=== PATIENT | male | born 1965 | race African-American/Black ===

== ENCOUNTER 2022-09-30 14:10 | Emergency (ER) | payer OTHER ==
[2022-09-30] MEDS ORDERED: Furosemide 40 MG/4 ML VIAL ONE (15:03)
[2022-09-30 15:07] LABS: Hemoglobin 11.8 g/dL (13.5-17.5); Mean Corpuscular HGB CONC 32.6 g/dL (32.0-36.0); Mean Corpuscular Hemoglobin 29.4 pg (27.0-33.0); Mean Corpuscular Volume 90.3 fl (81.2-95.1); Mean Platelet Volume 9.4 fl (7.4-10.4); Platelet Count 160 10x3/uL (150-450); RBC Distribution Width 14.4 % (11.5-14.5); Red Blood Cell (RBC) Count 4.01 10x6/uL (4.32-5.72); White Blood Cell (WBC) Count 12.3 10x3/uL (3.5-10.5)
[2022-09-30 15:22] LABS: SARS-CoV-2 NAA Rapid Test Not Detected (NotDetected)
[2022-09-30 15:33] LABS: CKMB 1.9 ng/mL (0-6.6)
[2022-09-30 15:51] LABS: ALT (SGPT) 12 U/L (8-55); AST (SGOT) 20 U/L (5-34); Albumin 3.1 g/dL (3.5-5.0); Alkaline Phosphatase 102 U/L (40-110); Anion Gap 16 mmol/L (10-20); BUN (Urea Nitrogen) 24 mg/dL (8.4-25.7); Bilirubin, Total 0.9 mg/dL (0.2-1.2); Calc. Creatinine Clearance 0 mL/min (70-130); Calcium 8.6 mg/dL (7.8-10.44); Carbon Dioxide 22 mmol/L (22-29); Chloride 98 mmol/L (98-107); Estimated GFR 75; Globulin 4.8 g/dL (2.4-3.5); Glucose 320 mg/dL (70-105); Lipase 4 U/L (8-78); Potassium 4.1 mmol/L (3.5-5.1); Protein, Total 7.9 g/dL (6.0-8.3); Sodium 132 mmol/L (136-145)
[2022-09-30 16:16] LABS: Band 5 % (5-11); Lymphocytes 7 % (21-51); Monocytes 11 % (0-10)
[2022-09-30] MEDS ORDERED: cefTRIAXone\\ROCEPHIN 1 GM VIAL ONE (16:20)
[2022-09-30] MEDS ORDERED: Metoprolol Tartrate 5 MG/5 ML VIAL ONE (16:20)
[2022-09-30 16:21] LABS: Neutrophil 77 % (42-75); Platelet Morphology Comment Appears Adequate
[2022-09-30 16:22] LABS: MDiff Complete? YES; RBC Morphology Normal
[2022-09-30] MEDS ORDERED: Aspirin Chewable 81 MG TAB ONE (16:39)
[2022-09-30] MEDS ORDERED: hydrALAZINE 20 MG/ML VIAL ONE (17:40)
== END 2022-09-30 22:53 | disposition short-term general hospital (02) ==
LOC: CSHERS 14:10
DX: S81.802A Unspecified open wound, left lower leg, initial encounter (principal); I11.0 Hypertensive heart disease with heart failure; I50.9 Heart failure, unspecified; I16.0 Hypertensive urgency; R79.89 Other specified abnormal findings of blood chemistry; E11.9 Type 2 diabetes mellitus without complications; X58.XXXA Exposure to other specified factors, initial encounter; Z20.822 Contact with and (suspected) exposure to COVID-19; Z87.891 Personal history of nicotine dependence
CPT/HCPCS: 36415; 71045; 80053; 82553; 83605; 83690; 83880; 84484; 85025; 87040; 93005; 93970; 94760; 96365; 96366; 96375; J0360; J0696; J1940; U0002

== ENCOUNTER 2022-11-11 11:16 | Inpatient (IN) | payer OTHER ==
[2022-11-11 13:24] LABS: CKMB 2.2 ng/mL (0-6.6)
[2022-11-11 13:26] LABS: SARS-CoV-2 NAA Rapid Test Not Detected (NotDetected)
[2022-11-11 14:58] LABS: ALT (SGPT) 12 U/L (8-55); AST (SGOT) 22 U/L (5-34); Albumin 3.2 g/dL (3.5-5.0); Alkaline Phosphatase 195 U/L (40-110); Anion Gap 15 mmol/L (10-20); BUN (Urea Nitrogen) 25 mg/dL (8.4-25.7); Bilirubin, Total 0.5 mg/dL (0.2-1.2); Calc. Creatinine Clearance 0 mL/min (70-130); Calcium 8.8 mg/dL (7.8-10.44); Carbon Dioxide 25 mmol/L (22-29); Chloride 106 mmol/L (98-107); Estimated GFR 87; Globulin 5.6 g/dL (2.4-3.5); Glucose 172 mg/dL (70-105); Potassium 4.6 mmol/L (3.5-5.1); Protein, Total 8.8 g/dL (6.0-8.3); Sodium 141 mmol/L (136-145)
[2022-11-11 15:52] LABS: #Eosinphils 0.2 10x3/uL (0.0-0.5); #Monocytes 0.8 10x3/uL (0.0-1.1); #Neutrophils 3.4 10x3/uL (1.5-8.4); %Basophils 0.6 % (0.0-2.0); %Eosinophils 3.5 % (0.0-6.0); %Lymphocytes 18.1 % (18.0-47.0); %Monocytes 14.8 % (0.0-10.0); %Neutrophils 62.8 % (40.0-75.0); Hemoglobin 12.1 g/dL (13.5-17.5); Mean Corpuscular HGB CONC 30.6 g/dL (32.0-36.0); Mean Corpuscular Hemoglobin 29.2 pg (27.0-33.0); Mean Corpuscular Volume 95.2 fl (81.2-95.1); Platelet Count 227 10x3/uL (150-450); RBC Distribution Width 14.4 % (11.5-14.5); Red Blood Cell (RBC) Count 4.15 10x6/uL (4.32-5.72); White Blood Cell (WBC) Count 5.4 10x3/uL (3.5-10.5)
[2022-11-11] MEDS ORDERED: Aspirin 325 MG TAB ONE (18:14)
[2022-11-11] MEDS ORDERED: Meropenem 500 MG VIAL ONE (18:16)
[2022-11-11 23:34] LABS: Troponin I 0.095 ng/mL (< 0.028)
[2022-11-12] MEDS ORDERED: Morphine 4 MG/ML VIAL ONE (00:16)
[2022-11-12 03:28] LABS: Troponin I 0.102 ng/mL (< 0.028)
[2022-11-12 07:34] VITALS: BMI 68.4
[2022-11-12] MEDS ORDERED: Meropenem 1 GM in Sodium Chloride 0.9% 100 ML IVPB SCH (08:00)
[2022-11-12] MEDS ORDERED: Dextrose 50% Abboject 50 ML SYRINGE SLOW IVP PRN (13:05)
[2022-11-12] MEDS ORDERED: Dextrose 5% in Water 1,000 ML IV PRN (13:05)
[2022-11-12] MEDS ORDERED: Acetaminophen 325 MG TAB PO PRN (13:12)
[2022-11-12] MEDS ORDERED: Ondansetron ODT 4 MG TAB PO PRN (13:12)
[2022-11-12] MEDS ORDERED: Furosemide 40 MG/4 ML VIAL SLOW IVP SCH (13:15)
[2022-11-12] MEDS ORDERED: Albuterol Sulfate 2.5 mg/3 ml Neb NEB PRN (13:37)
[2022-11-12 14:45] LABS: CKMB 1.5 ng/mL (0-6.6)
[2022-11-12] MEDS: Meropenem 1 GM in Sodium Chloride 0.9% 100 ML IVPB SCH (16:21)
[2022-11-12] MEDS: Morphine 4 MG/ML VIAL SLOW IVP PRN (17:21)
[2022-11-12] MEDS ORDERED: Losartan Potassium 50 MG TAB PO SCH (18:45)
[2022-11-12] MEDS ORDERED: Insulin NPH Human Isophane 100 UNIT/ML (10 ML VIAL) SC SCH (21:00)
[2022-11-12] MEDS ORDERED: Carvedilol 25 MG TAB PO SCH (21:00)
[2022-11-12] MEDS ORDERED: Terazosin HCl 5 MG CAP PO SCH (21:00)
[2022-11-12] MEDS: Carvedilol 25 MG TAB PO SCH (22:10)
[2022-11-12] MEDS: DULoxetine 30 MG CAP PO SCH (22:11)
[2022-11-12] MEDS: carBAMazepine 200 MG TAB PO SCH (22:11)
[2022-11-12] MEDS: Furosemide 40 MG/4 ML VIAL SLOW IVP SCH (22:18)
[2022-11-12] MEDS: Insulin Regular 300 UNITS/3 ML VIAL SC SCH (22:22)
[2022-11-12] MEDS: Insulin Regular 300 UNITS/3 ML VIAL SC PRN (22:26)
[2022-11-13] MEDS: Meropenem 1 GM in Sodium Chloride 0.9% 100 ML IVPB SCH ×3 (01:00→15:30)
[2022-11-13] MEDS: Morphine 4 MG/ML VIAL SLOW IVP PRN (04:46)
[2022-11-13 05:09] LABS: Anion Gap 9 mmol/L (10-20); BUN (Urea Nitrogen) 19 mg/dL (8.4-25.7); Calc. Creatinine Clearance 277 mL/min (70-130); Calcium 8.7 mg/dL (7.8-10.44); Carbon Dioxide 32 mmol/L (22-29); Chloride 102 mmol/L (98-107); Estimated GFR 101; Glucose 224 mg/dL (70-105); Magnesium 2.2 mg/dL (1.6-2.6); Potassium 3.8 mmol/L (3.5-5.1); Sodium 139 mmol/L (136-145)
[2022-11-13 05:12] LABS: #Eosinphils 0.1 10x3/uL (0.0-0.5); #Monocytes 0.9 10x3/uL (0.0-1.1); #Neutrophils 3.7 10x3/uL (1.5-8.4); %Basophils 0.4 % (0.0-2.0); %Lymphocytes 14.4 % (18.0-47.0); %Monocytes 16.9 % (0.0-10.0); %Neutrophils 66.1 % (40.0-75.0); Hemoglobin 11.7 g/dL (13.5-17.5); Mean Corpuscular HGB CONC 31.7 g/dL (32.0-36.0); Mean Corpuscular Hemoglobin 29.4 pg (27.0-33.0); Mean Corpuscular Volume 92.7 fl (81.2-95.1); Mean Platelet Volume 9.3 fl (7.4-10.4); Platelet Count 210 10x3/uL (150-450); RBC Distribution Width 14.3 % (11.5-14.5); Red Blood Cell (RBC) Count 3.98 10x6/uL (4.32-5.72); White Blood Cell (WBC) Count 5.6 10x3/uL (3.5-10.5)
[2022-11-13 05:25] LABS: Eosinophils 1 % (0-10); Monocytes 18 % (0-10)
[2022-11-13 05:26] LABS: Lymphocytes 13 % (21-51); Neutrophil 68 % (42-75)
[2022-11-13] MEDS: Insulin Regular 300 UNITS/3 ML VIAL SC SCH (07:52)
[2022-11-13] MEDS: Insulin Regular 300 UNITS/3 ML VIAL SC PRN ×2 (07:53→13:14)
[2022-11-13] MEDS ORDERED: metFORMIN 500 MG TAB PO SCH (08:00)
[2022-11-13] MEDS: Furosemide 40 MG/4 ML VIAL SLOW IVP SCH (08:58)
[2022-11-13] MEDS ORDERED: Aspirin Chewable 81 MG TAB PO SCH (09:00)
[2022-11-13] MEDS ORDERED: Amlodipine 10 MG TAB PO SCH ×2 (09:00)
[2022-11-13] MEDS ORDERED: Hydrochlorothiazide 25 MG TAB PO SCH (09:00)
[2022-11-13] MEDS ORDERED: Insulin NPH Human Isophane 100 UNIT/ML (10 ML VIAL) SC SCH (09:00)
[2022-11-13] MEDS ORDERED: Losartan 25 MG TAB PO SCH ×2 (09:00)
[2022-11-13] MEDS: DULoxetine 30 MG CAP PO SCH (09:03)
[2022-11-13] MEDS: Carvedilol 25 MG TAB PO SCH (09:03)
[2022-11-13] MEDS: carBAMazepine 200 MG TAB PO SCH (09:03)
[2022-11-13 17:25] VITALS: BP 183/96; TEMP 97.9
[2022-11-13] MEDS ORDERED: Atorvastatin Calcium 40 MG TAB PO SCH (21:00)
== END 2022-11-13 16:30 | DRG 299 ==
LOC: CSHERS 11:16 → EEVIPCON 11:16 → CSHTELE 23:35 → UNDOADMIN 23:35 → CSHTELE 11-12 12:59
PROVIDERS: ADMIT Family Medicine; ATTEND Nurse Practitioner Family
DX: I83.022 Varicose veins of left lower extremity with ulcer of calf (principal); J96.01 Acute respiratory failure with hypoxia; Z68.44 Body mass index [BMI] 60.0-69.9, adult; L03.116 Cellulitis of left lower limb; L97.929 Non-pressure chronic ulcer of unspecified part of left lower leg with unspecified severity; I13.0 Hypertensive heart and chronic kidney disease with heart failure and stage 1 through stage 4 chronic kidney disease, or unspecified chronic kidney disease; Z20.822 Contact with and (suspected) exposure to COVID-19; R79.89 Other specified abnormal findings of blood chemistry; G47.33 Obstructive sleep apnea (adult) (pediatric); I89.0 Lymphedema, not elsewhere classified; N18.9 Chronic kidney disease, unspecified; E11.22 Type 2 diabetes mellitus with diabetic chronic kidney disease; E66.01 Morbid (severe) obesity due to excess calories; E11.622 Type 2 diabetes mellitus with other skin ulcer; I50.9 Heart failure, unspecified; N40.0 Benign prostatic hyperplasia without lower urinary tract symptoms; D63.1 Anemia in chronic kidney disease; E11.51 Type 2 diabetes mellitus with diabetic peripheral angiopathy without gangrene; Z86.718 Personal history of other venous thrombosis and embolism; Z79.82 Long term (current) use of aspirin; Z79.899 Other long term (current) drug therapy; Z79.4 Long term (current) use of insulin; Z79.84 Long term (current) use of oral hypoglycemic drugs; Z88.1 Allergy status to other antibiotic agents; Z88.8 Allergy status to other drugs, medicaments and biological substances; Z82.49 Family history of ischemic heart disease and other diseases of the circulatory system; Z78.1 Physical restraint status
CPT/HCPCS: 36415; 36416; 71045; 80048; 80053; 82553; 83605; 83735; 83880; 84145; 84484; 85025; 87040; 87070; 87205; 93005; 93010; 93306; 93970; 94760; 96365; 96375; 97139; J1650; J1815; J1940; J2185; J2270; J3490; U0002

== ENCOUNTER 2022-12-27 02:43 | Inpatient (IN) | payer OTHER ==
[2022-12-27 03:47] LABS: #Eosinphils 0.2 10x3/uL (0.0-0.5); #Monocytes 0.6 10x3/uL (0.0-1.1); #Neutrophils 2.6 10x3/uL (1.5-8.4); %Basophils 0.6 % (0.0-2.0); %Lymphocytes 30.6 % (18.0-47.0); %Neutrophils 51.6 % (40.0-75.0); Hemoglobin 11.3 g/dL (13.5-17.5); Mean Corpuscular HGB CONC 31.4 g/dL (32.0-36.0); Mean Corpuscular Volume 92.3 fl (81.2-95.1); Mean Platelet Volume 9.5 fl (7.4-10.4); Platelet Count 175 10x3/uL (150-450); White Blood Cell (WBC) Count 4.9 10x3/uL (3.5-10.5)
[2022-12-27 04:01] LABS: ALT (SGPT) 27 U/L (8-55); AST (SGOT) 32 U/L (5-34); Albumin 3.1 g/dL (3.5-5.0); Alkaline Phosphatase 171 U/L (40-110); Anion Gap 10 mmol/L (10-20); BUN (Urea Nitrogen) 35 mg/dL (8.4-25.7); Bilirubin, Total 0.3 mg/dL (0.2-1.2); Calc. Creatinine Clearance 0 mL/min (70-130); Calcium 8.9 mg/dL (7.8-10.44); Carbon Dioxide 34 mmol/L (22-29); Chloride 96 mmol/L (98-107); Estimated GFR 37; Globulin 5.3 g/dL (2.4-3.5); Glucose 274 mg/dL (70-105); Potassium 4.4 mmol/L (3.5-5.1); Protein, Total 8.4 g/dL (6.0-8.3); Sodium 136 mmol/L (136-145)
[2022-12-27 04:03] LABS: SARS-CoV-2 NAA Rapid Test DETECTED (NotDetected)
[2022-12-27 04:24] LABS: CKMB 1.7 ng/mL (0-6.6)
[2022-12-27] MEDS ORDERED: Acetaminophen 325 MG TAB PO PRN (05:59)
[2022-12-27] MEDS ORDERED: Dextrose 50% Abboject 50 ML SYRINGE SLOW IVP PRN (05:59)
[2022-12-27] MEDS ORDERED: Calcium Carbonate 500 MG ChewTAB PO PRN (05:59)
[2022-12-27] MEDS ORDERED: Dextrose 5% in Water 1,000 ML IV PRN (05:59)
[2022-12-27] MEDS ORDERED: Senokot S 8.6-50 MG TAB PO PRN (05:59)
[2022-12-27] MEDS ORDERED: HumaLOG 300 UNITS/3 ML VIAL SC PRN (05:59)
[2022-12-27] MEDS ORDERED: Guaifenesin DM 100-10/5 ML UDCUP PO PRN (05:59)
[2022-12-27] MEDS ORDERED: Ondansetron PF 4 MG/2 ML Vial IVP PRN (05:59)
[2022-12-27] MEDS ORDERED: Ipratropium/Albuterol 3 ML NEB NEB PRN (06:04)
[2022-12-27] MEDS ORDERED: Nitroglycerin 2% Ointment 1 INCH/1 GM Packet TOP SCH (06:15)
[2022-12-27] MEDS ORDERED: methylPREDNISolone Sod Succ/PF 125 MG/2 ML VIAL ONE (06:33)
[2022-12-27] MEDS ORDERED: Ipratropium/Albuterol 3 ML NEB NEB SCH (07:00)
[2022-12-27 08:15] LABS: ALV-art Gradient 59.775 mmHg (0-20); Actual Bicarbonate (HCO3a) 33.9 mEq/L (22-28); Base Excess (BEa) 5.8 mEq/L (-2.0 to +3.0); CO2 Tension 66.9 mmHg (35.0-45.0); Calcium, Ionized (arterial) 1.13 mmol/L (1.12-1.30); Carboxyhemoglobin (COHb) 0.8 gm% (0.0-3.0); Hemoglobin (Hb) 12.7 g/dL (14.0-18.0); O2 Tension (PaO2), arterial 141.8 mmHg (80.0-100.0); Potassium - ABG Lab 4.4 mmol/L (3.70-5.30); Puncture Site LRA; pH, Arterial 7.32 (7.35-7.45)
[2022-12-27] MEDS: Mometasone/Formoterol 200/5 60 PUFF INH SCH ×3 (08:38→23:00)
[2022-12-27] MEDS ORDERED: Azithromycin 250 MG TAB PO SCH (09:00)
[2022-12-27] MEDS ORDERED: DULoxetine 60 MG CAP PO SCH (09:00)
[2022-12-27] MEDS: Carvedilol 25 MG TAB PO SCH ×2 (09:43→20:18)
[2022-12-27] MEDS: carBAMazepine 200 MG TAB PO SCH ×2 (09:43→20:18)
[2022-12-27] MEDS: Amlodipine 10 MG TAB PO SCH (09:43)
[2022-12-27] MEDS: Aspirin Chewable 81 MG TAB PO SCH (09:43)
[2022-12-27] MEDS: Multivit, Therapeutic 1 TAB PO SCH (09:44)
[2022-12-27] MEDS: Zinc Sulfate 220 MG CAP PO SCH (09:44)
[2022-12-27] MEDS: DULoxetine 30 MG CAP PO SCH ×2 (09:45→20:18)
[2022-12-27] MEDS: Furosemide 40 MG/4 ML VIAL SLOW IVP SCH (09:45)
[2022-12-27] MEDS: Insulin NPH Human Isophane 100 UNIT/ML (10 ML VIAL) SC SCH ×2 (09:45→20:20)
[2022-12-27] MEDS: Ipratropium/Albuterol 3 ML NEB NEB SCH ×3 (10:30→16:39)
[2022-12-27 10:35] LABS: Bilirubin Neg (Negative); Blood, Urine Negative (Negative); Clarity Clear (Clear); Glucose, Urine (Dipstick) 100 mg/dL (Negative); Ketone, Urine Negative (Negative); Leukocyte Negative (Negative); Nitrite Negative (Negative); Protein, Urine (Dipstick) 30 mg/dl (Neg-Trace); Urobilinogen Normal mg/dL (Less than 2)
[2022-12-27] MEDS: HYDROcodone/Acetaminophen 5/325 mg Tablet PO PRN ×2 (10:35→15:55)
[2022-12-27 10:52] LABS: Bacteria/HPF Rare-Few HPF (None Seen); RBC/HPF 0-3 HPF (0-3); Squamous Epithelial 0-3 HPF (0-3); WBC/HPF 0-3 HPF (0-3)
[2022-12-27] MEDS: methylPREDNISolone Sod Succ 40 MG VIAL IVP SCH ×3 (12:21→23:49)
[2022-12-27 13:45] LABS: CKMB 1.8 ng/mL (0-6.6)
[2022-12-27] MEDS ORDERED: Labetalol HCl 100 MG/20 ML VIAL SLOW IVP PRN (15:27)
[2022-12-27] MEDS ORDERED: Gabapentin 300 MG CAP PO SCH (15:30)
[2022-12-27] MEDS ORDERED: Lantus 1000 UNITS/10 ML VIAL SC SCH (16:45)
[2022-12-27] MEDS: HumaLOG 300 UNITS/3 ML VIAL SC PRN ×2 (17:07→20:23)
[2022-12-27] MEDS: cefTRIAXone\\ROCEPHIN 2 GM in Sodium Chloride 0.9% 100 ML IVPB SCH (17:07)
[2022-12-27] MEDS: Ascorbic Acid 500 mg Chewable Tablet PO SCH (20:17)
[2022-12-27] MEDS: Doxycycline 100 MG CAP PO SCH (20:18)
[2022-12-27] MEDS: Atorvastatin Calcium 40 MG TAB PO SCH (20:18)
[2022-12-27] MEDS: Calcium Carbonate 600 MG + Vit D TAB PO SCH (20:18)
[2022-12-27] MEDS: Terazosin HCl 5 MG CAP PO SCH (20:19)
[2022-12-27] MEDS: Tamsulosin HCl 0.4 MG CAP PO SCH (20:19)
[2022-12-27] MEDS ORDERED: metroNIDAZOLE 500 MG TAB PO SCH (21:00)
[2022-12-27] MEDS: Ventolin HFA Inhaler 60 PUFF INHALER INH SCH ×2 (21:00→23:00)
[2022-12-27] MEDS ORDERED: Ventolin HFA Inhaler 60 PUFF INHALER ONE (21:47)
[2022-12-27] MEDS: Acetaminophen/Codeine 30-300mg Tablet PO PRN (22:31)
[2022-12-28] MEDS: Ventolin HFA Inhaler 60 PUFF INHALER INH SCH ×6 (02:30→22:30)
[2022-12-28 04:55] LABS: #Monocytes 0.8 10x3/uL (0.0-1.1); #Neutrophils 3.7 10x3/uL (1.5-8.4); %Basophils 0.2 % (0.0-2.0); %Lymphocytes 17.6 % (18.0-47.0); %Monocytes 14.3 % (0.0-10.0); %Neutrophils 67.5 % (40.0-75.0); Hemoglobin 11.2 g/dL (13.5-17.5); Mean Corpuscular HGB CONC 32.1 g/dL (32.0-36.0); Mean Corpuscular Hemoglobin 29.2 pg (27.0-33.0); Mean Corpuscular Volume 91.1 fl (81.2-95.1); Mean Platelet Volume 9.5 fl (7.4-10.4); Platelet Count 180 10x3/uL (150-450); RBC Distribution Width 13.9 % (11.5-14.5); Red Blood Cell (RBC) Count 3.83 10x6/uL (4.32-5.72); White Blood Cell (WBC) Count 5.5 10x3/uL (3.5-10.5)
[2022-12-28 04:59] LABS: Anion Gap 11 mmol/L (10-20); BUN (Urea Nitrogen) 34 mg/dL (8.4-25.7); Calc. Creatinine Clearance 201 mL/min (70-130); Calcium 8.7 mg/dL (7.8-10.44); Carbon Dioxide 32 mmol/L (22-29); Chloride 98 mmol/L (98-107); Estimated GFR 69; Glucose 214 mg/dL (70-105); Potassium 4.4 mmol/L (3.5-5.1); Sodium 137 mmol/L (136-145)
[2022-12-28] MEDS: methylPREDNISolone Sod Succ 40 MG VIAL IVP SCH (05:32)
[2022-12-28] MEDS: Mometasone/Formoterol 200/5 60 PUFF INH SCH ×2 (07:19→19:17)
[2022-12-28] MEDS ORDERED: Lantus 1000 UNITS/10 ML VIAL SC SCH (09:00)
[2022-12-28] MEDS: Gabapentin 300 MG CAP PO SCH ×2 (09:34→21:54)
[2022-12-28] MEDS: Aspirin Chewable 81 MG TAB PO SCH (09:34)
[2022-12-28] MEDS: Losartan Potassium 50 MG TAB PO SCH (09:35)
[2022-12-28] MEDS: Amlodipine 10 MG TAB PO SCH (09:35)
[2022-12-28] MEDS: Ascorbic Acid 500 mg Chewable Tablet PO SCH ×2 (09:36→21:55)
[2022-12-28] MEDS: Calcium Carbonate 600 MG + Vit D TAB PO SCH ×2 (09:37→21:55)
[2022-12-28] MEDS: Venlafaxine HCl XR 75 MG CAP PO SCH (09:37)
[2022-12-28] MEDS: Multivit, Therapeutic 1 TAB PO SCH (09:37)
[2022-12-28] MEDS: carBAMazepine 200 MG TAB PO SCH ×2 (09:37→21:54)
[2022-12-28] MEDS: Carvedilol 25 MG TAB PO SCH ×2 (09:37→21:54)
[2022-12-28] MEDS: DULoxetine 30 MG CAP PO SCH ×2 (09:37→21:53)
[2022-12-28] MEDS: Zinc Sulfate 220 MG CAP PO SCH (09:37)
[2022-12-28] MEDS: Furosemide 40 MG/4 ML VIAL SLOW IVP SCH (09:38)
[2022-12-28] MEDS: Insulin NPH Human Isophane 100 UNIT/ML (10 ML VIAL) SC SCH ×2 (09:38→21:57)
[2022-12-28] MEDS: HYDROcodone/Acetaminophen 5/325 mg Tablet PO PRN (09:38)
[2022-12-28] MEDS: HumaLOG 300 UNITS/3 ML VIAL SC PRN ×3 (09:39→16:50)
[2022-12-28] MEDS: Doxycycline 100 MG CAP PO SCH ×2 (09:39→21:53)
[2022-12-28] MEDS: Acetaminophen/Codeine 30-300mg Tablet PO PRN (11:33)
[2022-12-28] MEDS: cefTRIAXone\\ROCEPHIN 2 GM in Sodium Chloride 0.9% 100 ML IVPB SCH (16:50)
[2022-12-28] MEDS: Terazosin HCl 5 MG CAP PO SCH (21:53)
[2022-12-28] MEDS: Atorvastatin Calcium 40 MG TAB PO SCH (21:54)
[2022-12-28] MEDS: Tamsulosin HCl 0.4 MG CAP PO SCH (21:54)
[2022-12-29] MEDS: Ventolin HFA Inhaler 60 PUFF INHALER INH SCH ×6 (02:25→23:23)
[2022-12-29] MEDS: HumaLOG 300 UNITS/3 ML VIAL SC PRN ×2 (06:48→12:44)
[2022-12-29 06:51] VITALS: BMI 73.4
[2022-12-29] MEDS: Mometasone/Formoterol 200/5 60 PUFF INH SCH ×2 (07:50→20:02)
[2022-12-29] MEDS: Amlodipine 10 MG TAB PO SCH (10:35)
[2022-12-29] MEDS: DULoxetine 30 MG CAP PO SCH ×2 (10:36→20:35)
[2022-12-29] MEDS: Calcium Carbonate 600 MG + Vit D TAB PO SCH ×2 (10:37→20:35)
[2022-12-29] MEDS: Gabapentin 300 MG CAP PO SCH ×2 (10:37→20:35)
[2022-12-29] MEDS: Aspirin Chewable 81 MG TAB PO SCH (10:37)
[2022-12-29] MEDS: Furosemide 40 MG/4 ML VIAL SLOW IVP SCH (10:38)
[2022-12-29] MEDS: Insulin NPH Human Isophane 100 UNIT/ML (10 ML VIAL) SC SCH ×2 (10:40→21:27)
[2022-12-29] MEDS: Ascorbic Acid 500 mg Chewable Tablet PO SCH ×2 (10:41→20:35)
[2022-12-29] MEDS: Zinc Sulfate 220 MG CAP PO SCH (10:45)
[2022-12-29] MEDS: carBAMazepine 200 MG TAB PO SCH ×2 (10:45→20:35)
[2022-12-29] MEDS: Carvedilol 25 MG TAB PO SCH ×2 (10:46→20:35)
[2022-12-29] MEDS: Losartan Potassium 50 MG TAB PO SCH (10:46)
[2022-12-29] MEDS: Cephalexin 500 MG CAP PO SCH ×2 (10:47→20:35)
[2022-12-29] MEDS: Multivit, Therapeutic 1 TAB PO SCH (10:47)
[2022-12-29] MEDS: Venlafaxine HCl XR 75 MG CAP PO SCH (10:50)
[2022-12-29] MEDS: Atorvastatin Calcium 40 MG TAB PO SCH (20:35)
[2022-12-29] MEDS: Tamsulosin HCl 0.4 MG CAP PO SCH (20:36)
[2022-12-29] MEDS: Terazosin HCl 5 MG CAP PO SCH (20:36)
[2022-12-30] MEDS: Ventolin HFA Inhaler 60 PUFF INHALER INH SCH (02:56)
[2022-12-30 03:24] VITALS: BP 191/98; TEMP 97.8
== END 2022-12-30 03:05 | DRG 205 ==
LOC: CSHERS 02:43 → EEVIPCON 02:43 → SUATTDRO 02:43 → CSHICU 07:52 → CSHTELE 12-28 13:19
PROVIDERS: ADMIT Student in an Organized Health Care Education/Training Program; ATTEND Internal Medicine
PROC: 5A09457 Assistance with Respiratory Ventilation, 24-96 Consecutive Hours, Continuous Positive Airway Pressure (ICD-10-PCS; principal; 2022-12-27)
DX: E66.2 Morbid (severe) obesity with alveolar hypoventilation (principal); J96.21 Acute and chronic respiratory failure with hypoxia; U07.1 COVID-19; N17.9 Acute kidney failure, unspecified; Z68.45 Body mass index [BMI] 70 or greater, adult; L97.929 Non-pressure chronic ulcer of unspecified part of left lower leg with unspecified severity; E78.5 Hyperlipidemia, unspecified; J44.9 Chronic obstructive pulmonary disease, unspecified; N40.0 Benign prostatic hyperplasia without lower urinary tract symptoms; G47.33 Obstructive sleep apnea (adult) (pediatric); I50.9 Heart failure, unspecified; E11.622 Type 2 diabetes mellitus with other skin ulcer; I11.0 Hypertensive heart disease with heart failure; Z98.890 Other specified postprocedural states; Z87.891 Personal history of nicotine dependence; I25.2 Old myocardial infarction; Z86.718 Personal history of other venous thrombosis and embolism; Z88.1 Allergy status to other antibiotic agents; Z88.8 Allergy status to other drugs, medicaments and biological substances; Z79.82 Long term (current) use of aspirin; Z79.4 Long term (current) use of insulin; Z79.51 Long term (current) use of inhaled steroids; Z79.899 Other long term (current) drug therapy; Z79.84 Long term (current) use of oral hypoglycemic drugs
CPT/HCPCS: 36415; 36416; 36600; 71045; 76770; 80048; 80053; 81001; 82553; 82805; 83605; 83880; 84484; 85025; 85379; 86140; 87040; 93005; 93010; 94660; 94664; 94760; 96372; 96374; 97139; J0696; J1650; J1815; J1940; J2920; J2930; J3490; J7620

== ENCOUNTER 2023-10-31 17:26 | Emergency (ER) | payer OTHER ==
[~2023-10-31 17:26] MED LIST: Iopamidol 300 61% 100 ML VIAL FS ONE
[2023-10-31] MEDS ORDERED: Vancomycin 1 GM VIAL ONE (17:47)
[2023-10-31] MEDS ORDERED: Ketorolac Tromethamine 30 MG/ML VIAL ONE (17:47)
[2023-10-31] MEDS ORDERED: Cefepime 2 GM VIAL ONE (17:48)
[2023-10-31] MEDS ORDERED: Clindamycin/D5W 600 MG in Premix 1 BAG IVPB SCH (18:00)
[2023-10-31 18:24] LABS: #Eosinphils 0.1 10x3/uL (0.0-0.5); #Monocytes 0.7 10x3/uL (0.0-1.1); #Neutrophils 9.4 10x3/uL (1.5-8.4); %Basophils 0.2 % (0.0-2.0); %Eosinophils 0.9 % (0.0-6.0); %Monocytes 6.7 % (0.0-10.0); %Neutrophils 88.5 % (40.0-75.0); Hematocrit 39.6 % (38.8-50.0); Hemoglobin 12.6 g/dL (13.5-17.5); Mean Corpuscular HGB CONC 31.8 g/dL (32.0-36.0); Mean Corpuscular Hemoglobin 28.9 pg (27.0-33.0); Mean Corpuscular Volume 90.8 fl (81.2-95.1); Mean Platelet Volume 9.4 fl (7.4-10.4); Platelet Count 188 10x3/uL (150-450); RBC Distribution Width 13.2 % (11.5-14.5); Red Blood Cell (RBC) Count 4.36 10x6/uL (4.32-5.72); White Blood Cell (WBC) Count 10.6 10x3/uL (3.5-10.5)
[2023-10-31 18:29] LABS: ALT (SGPT) Less than 7 U/L (8-55); AST (SGOT) 13 U/L (5-34); Albumin 3.4 g/dL (3.5-5.0); Alkaline Phosphatase 121 U/L (40-110); Anion Gap 12 mmol/L (10-20); BUN (Urea Nitrogen) 33 mg/dL (8.4-25.7); Bilirubin, Total 0.4 mg/dL (0.2-1.2); Calc. Creatinine Clearance 0 mL/min (70-130); Calcium 8.5 mg/dL (7.8-10.44); Carbon Dioxide 27 mmol/L (22-29); Chloride 104 mmol/L (98-107); Estimated GFR 57; Globulin 4.8 g/dL (2.4-3.5); Glucose 165 mg/dL (70-105); Potassium 4.8 mmol/L (3.5-5.1); Protein, Total 8.2 g/dL (6.0-8.3); Sodium 138 mmol/L (136-145)
[2023-10-31 18:36] LABS: INR-International Normal Ratio 3.1; PTT 42.4 sec (22.0-33.0); Prothrombin Time 32.6 sec (9.5-12.1)
[2023-10-31 18:38] LABS: CRP (Inflammatory) 4.69 mg/dL (= or < 0.5)
[2023-10-31 18:41] LABS: Bilirubin Neg (Negative); Blood, Urine 10 (Negative); Clarity Clear (Clear); Glucose, Urine (Dipstick) Normal (Negative); Ketone, Urine Negative (Negative); Leukocyte Negative (Negative); Nitrite Negative (Negative); Protein, Urine (Dipstick) 15 mg/dl (Neg-Trace); Urobilinogen Normal mg/dL (Less than 2)
[2023-10-31 18:47] LABS: SARS-CoV-2 NAA Rapid Test Not Detected (NotDetected)
[2023-10-31 18:51] LABS: Bacteria/HPF None Seen HPF (None Seen); CAUTI Indications for Culture Pelvic or flank pain; RBC/HPF 0-3 HPF (0-3); Squamous Epithelial 0-3 HPF (0-3); WBC/HPF 0-3 HPF (0-3)
[2023-10-31 18:52] LABS: Urine Culture Reflex No No
[2023-10-31] MEDS ORDERED: Morphine 4 MG/ML VIAL ONE (19:01)
== END 2023-10-31 23:45 | disposition short-term general hospital (02) ==
LOC: EEVIPCON 17:26 → CSHERS 17:26
DX: L03.116 Cellulitis of left lower limb (principal); I50.9 Heart failure, unspecified; J45.909 Unspecified asthma, uncomplicated; I13.0 Hypertensive heart and chronic kidney disease with heart failure and stage 1 through stage 4 chronic kidney disease, or unspecified chronic kidney disease; E11.22 Type 2 diabetes mellitus with diabetic chronic kidney disease; N18.9 Chronic kidney disease, unspecified; Z87.891 Personal history of nicotine dependence; Z20.822 Contact with and (suspected) exposure to COVID-19
CPT/HCPCS: 36415; 71045; 74177; 80053; 81001; 83605; 83690; 83880; 84484; 85025; 85610; 85730; 86140; 87040; 87077; 87149; 87186; 93005; 96361; 96365; 96375; J0692; J1885; J2270; J3370; J3490; Q9967